=== PATIENT | female | born 1945 | race Caucasian/White ===

== ENCOUNTER 2024-11-08 13:05 | Emergency (ER) | payer OTHER, MEDICARE ==
[2024-11-08] MEDS ORDERED: dexAMETHasone 10 MG/ML VIAL ONE (13:44)
[2024-11-08 14:23] LABS: SARS-CoV-2 Antigen CONTROL BLUE LINE VIS/BG OK; SARS-CoV-2 Antigen Rapid Res Negative (Negative)
--- NOTE | 2024-11-08 14:23 | RAD REPORT ---
EXAMINATION: TWO VIEW CHEST XR CLINICAL INDICATION: Female, 79 years old. [facility] MAIN Congestion;Cough Bed Name: 10 TECHNIQUE: 2 view radiographs of the chest were performed. COMPARISON: No prior exam. FINDINGS: The lungs are hyperexpanded suggesting COPD. No pneumothorax or sizable effusion. The heart is normal in size. Mediastinal contours are unremarkable. Implantable rhythm monitoring device in place. IMPRESSION: No acute thoracic abnormalities. Changes of COPD.
--- NOTE | 2024-11-08 14:44 | ER ---
Nurse's Notes [facility] [place] Name: Elvi Blackburn Age: 79 yrs Sex: Female : 1945 Arrival Date: 11/08/2024 Time: 13:05 Bed 10 Private MD: Diagnosis: COPD/ Chronic obstructive pulmonary disease, unspecified;Acute upper respiratory infection, unspecified Presentation: 11/08 13:35 Chief complaint: Patient states: Cough, congestion x 1 week. Coronavirus screen: Client franklin presents with at least one sign or symptom that may indicate coronavirus-19. Ebola Screen: No symptoms or risks identified at this time. Initial Sepsis Screen: Does the patient meet any 2 criteria? No. Patient's initial sepsis screen is negative. Does the patient have a suspected source of infection? No. Patient's initial sepsis screen is negative. Risk Assessment: Do you want to hurt yourself or someone else? Patient reports no desire to harm self or others. Onset of symptoms was November 01, 2024. 13:35 Method Of Arrival: Ambulatory [facility] 13:35 Acuity: XIMENA 3 [facility] Triage Assessment: 13:36 General: Appears in no apparent distress. uncomfortable, well groomed, well developed, jl7 well nourished, Behavior is calm, cooperative, appropriate for age. Pain: Denies pain. Historical: - Allergies: 13:36 PENICILLINS; jl7 13:36 Clindamycin; [facility] - Home Meds: 13:36 dofetilide 250 mcg oral capsule [Active]; progesterone (bulk) [Active]; jl7 - PMHx: 13:36 Atrial fibrillation; breast cancer; [facility] - PSHx: 13:36 Cholecystectomy; cardiac ablation; Appendectomy; jl7 - Immunization history:: Adult Immunizations unknown. - Infectious Disease History:: Denies. - Social history:: Smoking status: Patient denies any tobacco usage or history of. Screenin:35 [facility] ED Fall Risk Assessment (Adult) History of falling in the last 3 months, me1 including since admission No falls in past 3 months (0 pts) Confusion or Disorientation No (0 pts) Intoxicated or Sedated No (0 pts) Impaired Gait No (0 pts) Mobility Assist Device Used No (0 pt) Altered Elimination No (0 pt) Score/Fall Risk Level 0 - 2 = Low Risk Oriented to surroundings, Maintained a safe environment. Abuse screen: Denies threats or abuse. Denies injuries from another. Nutritional screening: No deficits noted. Tuberculosis screening: No symptoms or risk factors identified. Assessment: 14:35 Reassessment: Patient appears in no apparent distress at this time. Patient and/or me1 family updated on plan of care and expected duration. Pain level reassessed. Patient is alert, oriented x 3, equal unlabored respirations, skin warm/dry/pink. General: Appears in no apparent distress. comfortable, Behavior is calm, cooperative. Neuro: Level of Consciousness is awake, alert, obeys commands, Oriented to person, place, time, situation. Respiratory: Airway is patent Respiratory effort is even, unlabored, Respiratory pattern is regular, symmetrical. Vital Signs: 13:35 BP 147 / 72; Pulse 59; Resp 17; Temp 97.1; Pulse Ox 98% ; jl7 14:35 BP 146 / 72; Pulse 62; Resp 16; Pulse Ox 98% on R/A; me1 ED Course: 13:08 Patient arrived in ED. mr 13:09 Niles Cotter, GLASS GLAZIER-[facility]5 13:09 Aditya Ribera MD is Attending Physician. dr5 13:29 Marti Quinones, CHERRY is Primary Nurse. db 13:36 Triage completed. jl7 13:36 Arm band placed on right wrist. jl7 13:46 Influenza Screen (a \T\ B) Sent. db 13:46 SARS RAPID Sent. db 14:06 Chest Pa And Lat (2 Views) XRAY In Process Unspecified. EDMS 14:35 Patient has correct armband on for positive identification. Bed in low position. Call me1 light in reach. Side rails up X 1. Pulse ox on. NIBP on. Pillow given. 14:56 Provided Education on: discharge and followup. me1 14:56 No provider procedures requiring assistance completed. Patient did not have IV access me1 during this emergency room visit. Administered Medications: 13:50 Drug: Dexamethasone IM 10 mg IM once Route: IM; Site: right ventrogluteal; db 14:53 Follow up: Response: No adverse reaction me1 Medication: 14:35 VIS not applicable for this client. me1 Outcome: 14:43 Discharge ordered by . dr5 14:56 Discharged to home ambulatory, me1 14:56 Condition: stable 14:56 Discharge instructions given to patient, Instructed on discharge instructions, follow up and referral plans. Prescriptions given X 4, 14:56 Patient left the ED. me1 Signatures: Dispatcher [employer] EDFlorence Kebede, Reg Reg mr DuranDunia, RN RN jl7 Marti Quinones, CHERRY CAREY db Roslyn Dupont RN RN me1 Niles Cotter, GLASS GLAZIER-C GLASS GLAZIER-Cdr5
--- NOTE | 2024-11-08 14:44 | EDPHYS ---
Physician Documentation [facility] Name: Elvi Blackburn Age: 79 yrs Sex: Female : 1945 Arrival Date: 11/08/2024 Time: 13:05 Bed 10 Private MD: ED Physician Aditya Ribera HPI: 11/08 13:33 This 79 yrs old Female presents to ER via Unassigned with complaints of Chest dr5 Congestion. 13:33 Onset: The symptoms/episode began/occurred 1 week(s) ago. Patient is a 79-year-old dr5 female with history of atrial fibrillation, breast cancer coming in with 1 week of cough, congestion, subjective fevers at home. Patient reports that her was seen at [facility] ER yesterday for the same symptoms and was diagnosed with bronchitis. Patient has had cholecystectomy and appendectomy.. Historical: - Allergies: 13:36 PENICILLINS; jl7 13:36 Clindamycin; jl7 - Home Meds: 13:36 dofetilide 250 mcg oral capsule [Active]; progesterone (bulk) [Active]; jl7 - PMHx: 13:36 Atrial fibrillation; breast cancer; jl7 - PSHx: 13:36 Cholecystectomy; cardiac ablation; Appendectomy; jl7 - Immunization history:: Adult Immunizations unknown. - Infectious Disease History:: Denies. - Social history:: Smoking status: Patient denies any tobacco usage or history of. ROS: 13:33 Constitutional: as per hpi dr5 Exam: 13:33 Constitutional: This is a well developed, well nourished patient who is awake, alert, dr5 and in no acute distress. Head/Face: Normocephalic, atraumatic. Eyes: Pupils equal round and reactive to light, extra-ocular motions intact. Lids and lashes normal. Conjunctiva and sclera are non-icteric and not injected. Cornea within normal limits. Periorbital areas with no swelling, redness, or edema. Neck: Trachea midline, no thyromegaly or masses palpated, and no cervical lymphadenopathy. Supple, full range of motion without nuchal rigidity, or vertebral point tenderness. No Meningismus. Chest/axilla: Normal chest wall appearance and motion. Nontender with no deformity. No lesions are appreciated. Cardiovascular: Regular rate and rhythm with a normal S1 and S2. Normal PMI, no JVD. No pulse deficits. Respiratory: Lungs have equal breath sounds bilaterally, clear to auscultation. No rales, rhonchi or wheezes noted. No increased work of breathing, no retractions or nasal flaring. Back: No spinal tenderness. No costovertebral tenderness. Full range of motion. Skin: Warm, dry with normal turgor. Normal color with no rashes, no lesions, and no evidence of cellulitis. MS/ Extremity: Pulses equal, no cyanosis. Neurovascular intact. Full, normal range of motion. Neuro: Awake and alert, GCS 15, oriented to person, place, time, and situation. Cranial nerves II-XII grossly intact. Motor strength 5/5 in all extremities. Sensory grossly intact. Cerebellar exam normal. Normal gait. Vital Signs: 13:35 BP 147 / 72; Pulse 59; Resp 17; Temp 97.1; Pulse Ox 98% ; jl7 14:35 BP 146 / 72; Pulse 62; Resp 16; Pulse Ox 98% on R/A; me1 MDM: 13:10 Medical Screening Exam initiated dr5 15:36 Differential diagnosis: viral Infection, bacterial infection, URI, bronchitis, dr5 pneumonia. Data reviewed: vital signs, nurses notes. I considered the following discharge prescriptions or medication management in the emergency department Medications were administered in the Emergency Department. See MAR. Historians other than the Patient: Spouse/Significant Other: . Care significantly affected by the following chronic conditions: Cancer, Atrial fibrillation. Care significantly affected by the following Social Determinants of Health: Poor access to healthcare and/or lack of insurance, Poor access to transportation, Problems related to employment. Counseling: I had a detailed discussion with the patient and/or guardian regarding the historical points, exam findings, and any diagnostic results supporting the discharge/admit diagnosis, the presence of at least one elevated blood pressure reading (>120/80) during this emergency department visit, lab results, radiology results, the need for outpatient follow up, for definitive care, a family practitioner, to return to the emergency department if symptoms worsen or persist or if there are any questions or concerns that arise at home. ED course: Steroid injection given in ER. Will send patient home with azithromycin given COPD and history of breast cancer. Also given cough medication and albuterol to take as needed. Recommended patient follow-up primary care doctor for continued management. Alternate Tylenol Motrin as needed for fever. Return to ER for worsening conditions, chest pain, or shortness of breath. All questions answered. Patient is well-appearing on discharge. 11/08 13:31 Order name: SARS RAPID; Complete Time: 14:28 dr5 11/08 13:31 Order name: Influenza Screen (a \T\ B); Complete Time: 14:28 dr5 11/08 13:31 Order name: Chest Pa And Lat (2 Views) XRAY; Complete Time: 14:28 dr5 Administered Medications: 13:50 Drug: Dexamethasone IM 10 mg IM once Route: IM; Site: right ventrogluteal; db 14:53 Follow up: Response: No adverse reaction me1 Disposition: 15:11 Co-signature as Attending Physician, Aditya Ribera MD I reviewed the patient's care rn provided by the Advanced Practice Provider and agree with the diagnosis and treatment plan. Disposition Summary: 11/08/24 14:43 Discharge Ordered Notes: Location: Home dr5 Condition: Stable dr5 Diagnosis - COPD/ Chronic obstructive pulmonary disease, unspecified dr5 - Acute upper respiratory infection, unspecified dr5 Followup: dr5 - With: Emergency Department - When: As needed - Reason: Worsening of condition Followup: dr5 - With: Private Physician - When: 1 - 2 days - Reason: Recheck today's complaints, Continuance of care, Re-evaluation by your physician Discharge Instructions: - Discharge Summary Sheet dr5 - Chronic Obstructive Pulmonary Disease dr5 - Upper Respiratory Infection, Adult dr5 Forms: - Medication Reconciliation Form dr5 - Antibiotic Education dr5 - Prescription Opioid Use dr5 - Patient Portal Instructions dr5 - Leadership Thank You Letter dr5 Prescriptions: - azithromycin 500 mg Oral tablet - take 1 dose pack ORAL route as directed on dose pack for 5 days For 250 mg dose dr5 pack: take 500 mg today (day 1), then 250 mg for 4 days (days 2-5); 1 Pack; Refills: 0, Product Selection Permitted - albuterol sulfate 90 mcg/actuation Inhalation HFA Aerosol Inhaler - inhale 2 inhalation INHALATION route every 6 hours As needed as needed for dr5 bronchospasm; administer via ventilator; 1 application; Refills: 0, Product Selection Permitted - Medrol (Humphrey) 4 mg Oral Tablets, Dose Pack - take 1 tablet ORAL route as directed - follow package instructions; 1 packet; dr5 Refills: 0, Product Selection Permitted - Guaifenesin AC 10-100 mg/5 mL Oral Liquid - take 10 milliliters ORAL route every 4 hours As needed; 240 milliliter; dr5 Refills: 0, Product Selection Permitted Signatures: Dispatcher [employer] EDMS Aditya Ribera MD MD rn Leal, Jahala, RN RN jl7 Marti Quinones, RN RN db Niles Cotter, [employer]EDIT AND LOAN COLLECTIONS SUPERVISOR-C CREDIT AND LOAN COLLECTIONS SUPERVISOR-Cdr5 Roslyn Dupont RN me1 Corrections: (The following items were deleted from the chart) 13:32 13:32 SARS-COV-2 Antigen Rapid+I.LAB.BRZ ordered. EDMS EDMS 13:32 13:32 Influenza Screen (A \T\ B)+BA.LAB.BRZ ordered. EDMS EDMS
[2024-11-08 22:04] VITALS: TEMP 97.1; O2SAT 98
[2024-11-08 22:05] VITALS: BP 146/72
== END 2024-11-08 14:56 | disposition home or self-care (01) ==
LOC: ER 13:05
DX: J06.9 Acute upper respiratory infection, unspecified (principal); J44.9 Chronic obstructive pulmonary disease, unspecified; Z11.52 Encounter for screening for COVID-19; I48.91 Unspecified atrial fibrillation
CPT/HCPCS: 36415; 87804 ×2; 71046; 96372; 99284; 87811; J1100